=== PATIENT | male | born 2000 | race Two or more races ===

== ENCOUNTER → 2022-05-06 15:25 | Outpatient (BNVA) | payer OTHER, SELFPAY | PROVIDERS: Visit Provider Physician Assistant Medical | DX: S40.872A Other superficial bite of left upper arm, initial encounter (principal); W50.3XXA Accidental bite by another person, initial encounter; S00.81XA Abrasion of other part of head, initial encounter; W50.4XXA Accidental scratch by another person, initial encounter | CPT/HCPCS: 99202 ==